=== PATIENT | female | born 1995 | race Caucasian/White ===

== ENCOUNTER 2018-03-02 03:42 | Inpatient (IN) | payer OTHER ==
[~2018-03-02] VITALS: Ht 160 cm; Wt 61.0 kg
[2018-03-02] VITALS (13 sets, daily range): BP systolic 98–120; BP diastolic 52–70
[~2018-03-02 03:42] MED LIST: AMOXICILLIN500 MG PO; MOTRIN800 MG PO; PRENATAL TABLE1 EAC3 PO
[2018-03-02 06:00] LABS: BASOPHIL (%) 0.2 % (0-1); EOSINOPHIL (%) 0.8 % (0-5); EOSINOPHIL COUNT 0.1 K/uL (0-0.3); HEMATOCRIT 37.9 % (36.0-46.0); HEMOGLOBIN 12.6 G/DL (11.9-15.5); IMMATURE GRANULOCYTE (%) 0.7 % (0.0-0.7); LYMPHOCYTE (%) 16.8 % (15-42); LYMPHOCYTE COUNT 2.1 K/uL (1.0-2.8); MCH 27.3 PG (29.0-34.0); MCHC 33.2 G/DL (30.0-36.0); MONOCYTE (%) 6.1 % (3-12); MONOCYTE COUNT 0.8 K/uL (0-0.8); NEUTROPHIL (%) 75.4 % (45-76); NEUTROPHIL COUNT 9.5 K/uL (1.8-6.4); PLATELET COUNT 194 K/uL (156-360); RBC DIS.WIDTH-CV 12.8 % (11.8-14.6); RBC DIS.WIDTH-SD 38.1 % (39-53); RED BLOOD COUNT 4.62 M/uL (3.80-5.20); WHITE BLOOD COUNT 12.6 K/uL (4.1-10.2)
[2018-03-02 06:03] LABS: AMPHETAMINE NEGATIVE (500 ng/mL); BARBITURATES NEGATIVE (200 ng/mL); BENZODIAZEPINES NEGATIVE (150 ng/mL); BUPRENORPHINE NEGATIVE (10 ng/mL); COCAINE NEGATIVE (150 ng/mL); METHADONE NEGATIVE (200 ng/mL); METHAMPHETAMINE NEGATIVE (500 ng/mL); OPIATES (MORPHINE) NEGATIVE (100 ng/mL); OXYCODONE NEGATIVE (100 ng/mL); PHENCYCLIDINE NEGATIVE (25 ng/mL); PROPOXYPHENE NEGATIVE (300 ng/mL); THC CANNABINOIDS NEGATIVE (50 ng/mL); TRICYCLIC ANTIDEPRESSANTS NEGATIVE (300 ng/mL)
[2018-03-02] MEDS ORDERED: MOTRIN800 MG PO (09:23)
[2018-03-03 04:51] LABS: BASOPHIL (%) 0.1 % (0-1); EOSINOPHIL (%) 0 % (0-5); IMMATURE GRANULOCYTE (%) 0.8 % (0.0-0.7); LYMPHOCYTE (%) 8.7 % (15-42); LYMPHOCYTE COUNT 1.8 K/uL (1.0-2.8); MCH 27.6 PG (29.0-34.0); MCV 81.3 FL (83-99); MONOCYTE (%) 4.8 % (3-12); NEUTROPHIL (%) 85.6 % (45-76); NEUTROPHIL COUNT 18.1 K/uL (1.8-6.4); PLATELET COUNT 185 K/uL (156-360); RBC DIS.WIDTH-CV 12.6 % (11.8-14.6); RBC DIS.WIDTH-SD 36.4 % (39-53); WHITE BLOOD COUNT 21.1 K/uL (4.1-10.2)
[2018-03-03 04:52] LABS: HEMOGLOBIN 10.2 G/DL (11.9-15.5); RED BLOOD COUNT 3.69 M/uL (3.80-5.20)
[2018-03-03 23:00] VITALS: BP 100/58
[2018-03-04 07:30] VITALS: BP 109/51
== END 2018-03-04 16:00 | disposition home or self-care (01) | DRG 774 ==
LOC: LDRP-OP 03:42 → 2WEST 03:43 → LDRP-OP 05-07 12:07
PROVIDERS: Nurse Practitioner
PROC: 10E0XZZ Delivery of Products of Conception, External Approach (ICD-10-PCS; principal; 2018-03-02)
PROC: 10907ZC Drainage of Amniotic Fluid, Therapeutic from Products of Conception, Via Natural or Artificial Opening (ICD-10-PCS; 2018-03-02)
DX: O60.14X1 Preterm labor third trimester with preterm delivery third trimester, fetus 1 (principal); O99.413 Diseases of the circulatory system complicating pregnancy, third trimester; O62.3 Precipitate labor; Z37.0 Single live birth; Z3A.34 34 weeks gestation of pregnancy; Z15.01 Genetic susceptibility to malignant neoplasm of breast; R01.1 Cardiac murmur, unspecified; O36.5931 Maternal care for other known or suspected poor fetal growth, third trimester, fetus 1; Z80.3 Family history of malignant neoplasm of breast; Z80.0 Family history of malignant neoplasm of digestive organs; Z81.1 Family history of alcohol abuse and dependence; Z81.8 Family history of other mental and behavioral disorders; Z80.6 Family history of leukemia; Z82.49 Family history of ischemic heart disease and other diseases of the circulatory system
CPT/HCPCS: 76805; 85025; 87081; 88307; J0702; J2540; J7120